=== PATIENT | female | born 1970 | race Caucasian/White ===

== ENCOUNTER 2019-12-19 09:36 | Outpatient (RCR) | payer BC, SELFPAY | END 2019-12-27 23:59 | disposition home or self-care (01) | LOC: SPT 09:36 | PROVIDERS: Family Provider Internal Medicine; PCP Internal Medicine; Visit Provider Internal Medicine | DX: M25.561 Pain in right knee (principal); I26.99 Other pulmonary embolism without acute cor pulmonale | CPT/HCPCS: 97110; 97113; 97162 ==

== ENCOUNTER 2019-12-28 06:00 | Outpatient (RCR) | payer BC, SELFPAY | END 2020-01-25 23:59 | disposition home or self-care (01) | LOC: SPT 06:00 | PROVIDERS: Family Provider Internal Medicine; PCP Internal Medicine; Visit Provider Internal Medicine | DX: M25.561 Pain in right knee (principal); I26.99 Other pulmonary embolism without acute cor pulmonale | CPT/HCPCS: 97113 ==

== ENCOUNTER 2020-01-26 06:00 | Outpatient (RCR) | payer BC, SELFPAY | END 2020-02-25 23:59 | disposition home or self-care (01) | LOC: SPT 06:00 | PROVIDERS: Family Provider Internal Medicine; PCP Internal Medicine; Visit Provider Internal Medicine | DX: I26.99 Other pulmonary embolism without acute cor pulmonale (principal); M25.561 Pain in right knee | CPT/HCPCS: 97164 ==

== ENCOUNTER → 2020-03-17 15:40 | Outpatient (BNVA) | payer BC, SELFPAY | PROVIDERS: Family Provider Internal Medicine; PCP Internal Medicine; Visit Provider Specialist | DX: G43.019 Migraine without aura, intractable, without status migrainosus (principal); G25.0 Essential tremor | CPT/HCPCS: 99213 ==

== ENCOUNTER 2020-10-15 08:31 | Outpatient (CLI) | payer BC, SELFPAY ==
--- NOTE | 2020-10-15 08:41 | MM_ITS ---
WS: [id number] Exam: [id number] Date/Time of Exam: 10/15/2020 8:50 AM Reason For Exam: SCREENING VIEWS: MLO and CC views both breasts. Comparison made with prior exam of 10/15/2019 and 10/01/2015. Findings: Stable appearing nodular densities in both breasts. No new suspicious finding in either breast. The breasts are heterogeneously dense. MM/[id number] Impression: BI-RADS: 2-Benign FOLLOW-UP: 1 Year Follow-up This mammogram was also analyzed by the Computer Aided Detection System R2 Imag e Mechanical Supervisor.
== END 2020-10-15 08:32 | disposition home or self-care (01) ==
LOC: RADSHAW 08:34
PROVIDERS: Family Provider Internal Medicine; PCP Internal Medicine; Visit Provider Internal Medicine
DX: Z12.31 Encounter for screening mammogram for malignant neoplasm of breast (principal)
CPT/HCPCS: 77067

== ENCOUNTER → 2020-12-16 14:44 | Outpatient (BNVA) | payer BC, SELFPAY | PROVIDERS: Family Provider Internal Medicine; PCP Internal Medicine; Visit Provider Specialist | DX: G43.711 Chronic migraine without aura, intractable, with status migrainosus (principal); G25.0 Essential tremor; G47.33 Obstructive sleep apnea (adult) (pediatric); F41.9 Anxiety disorder, unspecified; Z87.891 Personal history of nicotine dependence | CPT/HCPCS: 99214 ==

== ENCOUNTER 2020-12-24 20:00 | Outpatient (CLI) | payer BC, SELFPAY | END 2020-12-24 20:01 | disposition home or self-care (01) | LOC: SLEEP 12-25 08:59 | PROVIDERS: Family Provider Internal Medicine; PCP Internal Medicine; Visit Provider Specialist | DX: G47.30 Sleep apnea, unspecified (principal) | CPT/HCPCS: 95811 ==

== ENCOUNTER 2021-02-16 15:27 | Emergency (ER) | payer BC, SELFPAY ==
[2021-02-16 15:30] VITALS: BP 137/83; PULSE 97; RESP 18; TEMP 36.8; O2SAT 94; BMI 47.0
[2021-02-16 15:54] VITALS: BP 149/104; PULSE 88; RESP 14; O2SAT 94
[2021-02-16] MEDS: LORazepam 2 mg/mL INJ 1 mL 1 MG IM (16:04)
--- NOTE | 2021-02-16 16:31 | ED_ITS ---
HPI - Psych General: Chief Complaint: Psychiatric Symptoms Stated Complaint: PSYCH EVAL Time Seen by Provider: 02/16/21 15:43 History of Present Illness: HPI Narrative: The patient is a 50-year-old female with past medical history anxiety disorder who comes to the ER complaining of anxiety and crying that cannot stop. In the past 2 weeks she has been tapered down on her Klonopin which are 1 mg tablets from 4 times a day to 2 times a day. She says just after that she started having increased feelings of anxiety and crying that will not stop. Denies suicidal, homicidal ideations and denies hallucinations. Denies alcohol and drug abuse Duration: constant History of same: Yes Relieving factors: medication Associated psychiatric symptoms: none and other (Anxiety) Associated symptoms: Reports no associated symptoms; Deny depression Review of Systems General: Reports: 10 or more systems reviewed and unremarkable except in HPI and below Const: Denies: fatigue Eyes: Denies: change in vision, blurry vision or eye redness ENMT: Denies: throat pain, swelling of lips/tongue, ear or mastoid pain or nasal congestion Card: Denies: chest pain, palpitations, irregular heart rhythm, edema, dyspnea on exertion or orthopnea Resp: Denies: dyspnea, productive cough or non-productive cough GI: Denies: abdominal pain, diarrhea or GI cramping : Denies: flank pain, difficulty voiding, urinary frequency or urinary urgency Musc: Denies: neck pain, back pain, extremity pain, joint pain, joint redness, limited range of motion or muscle weakness Skin/Breast: Denies: rash, pruritus, erythema, skin pain or skin tenderness Neuro: Denies: headache(s), numbness in extremities, weakness in extremities, sensory changes, difficulty walking, dizziness, confusion or Slurred speech present Psych: Denies: anxiety or depression Endo: Denies: polyuria All/Imm: Denies: urticaria, throat swelling or tongue swelling PFSH ED PFSH: Medical History Chronic migraine without aura, intractable, with status migrainosus Depression with anxiety Essential tremor Gastroesophageal reflux History of pulmonary embolism (~07/2019) Reports no source of clot found. Obesity Palpitations Surgical History H/O total vaginal hysterectomy (06/15/10) with Solyx SIS sling. Dx: Menorrhagia, Uterovaginal prolapse, MISBAH. Performed by Dr. Newberry at [facility] [place] in [place], [place]. History of carpal tunnel surgery of right wrist x2 with Dr. Luna History of dilation and curettage (~1996) miscarriage at 7 months History of knee surgery S/P laparoscopic cholecystectomy (11/23/18) Performed by Dr. Chaudhari at [facility] [place] [place] in [place], [place] Family History Mother Diabetes Thyroid condition Hypertension Sister Thyroid condition Other Paternal family history unobtainable Social History Smoking and tobacco status: former smoker Quit status (tobacco): has quit using tobacco Year quit tobacco: 2013 Former quit date comment: smoked 32 years Alcohol intake: never History of recent travel: No Physical Exam Const: COMMON NORMALS: no acute distress, average body habitus, patient oriented x3, no limitations, healthy appearing, alert and well nourished GENERAL APPEARANCE: cooperative, comfortable, well kempt and well developed ORIENTATION/CONSCIOUSNESS: Yes awake, Yes oriented to person, Yes oriented to place and Yes oriented to time HENMT: COMMON NORMALS: normocephalic, external ears normal and Normal external nose present HEAD & SCALP: normal to inspection and normocephalic NOSE: Normal external nose present EXTERNAL EAR: Yes external ears normal MOUTH: Normal oral and palatal mucosa present THROAT: posterior oropharynx normal Eye: COMMON NORMALS: Equal, round and reactive pupils present and EOMs intact bilaterally GENERAL EYE: appearance normal, both eyes and all related structures PUPIL: Yes Equal, round and reactive pupils present Neck/C-Spine: COMMON NORMALS: full ROM, no lymphadenopathy, no meningeal signs and no JVD GENERAL: Yes normal visual inspection Lymph: LYMPHATIC: no lymphadenopathy noted Chest: COMMONS NORMALS: normal inspection of the chest and normal palpation of entire chest wall Resp: COMMON NORMALS: normal respiratory effort, No retractions, No use of accessory muscles, clear to auscultation bilaterally and percussion normal EFFORT & INSPECTION: Yes able to speak in complete sentences AUSCULTATION: clear to auscultation bilaterally PERCUSSION: percussion normal Cardio: COMMON NORMALS: no JVD, regular rate, regular rhythm, S1 normal heart sound present, S2 normal heart sound present and Peripheral pulses 2+ throughout RATE: regular rate RHYTHM: regular rhythm HEART SOUNDS: S1 normal heart sound present and S2 normal heart sound present PERIPHERAL PULSES: Peripheral pulses 2+ throughout GI: COMMON NORMALS: Normal to inspection, nondistended, normoactive bowel sounds present, Soft to palpation, non-tender and no masses INSPECTION: Yes normal to inspection PALPATION: Yes Soft to palpation : COMMON NORMALS: Yes no CVA tenderness BLADDER/KIDNEY EXAM: Yes no CVA tenderness Back/Pelvis: COMMON NORMALS: no CVA tenderness, thoracic and lumbar spine normal to inspection, no thoracic nor lumbar tenderness and thoraco-lumbar ROM normal Extremity: COMMON NORMALS: normal to inspection, full ROM, capillary refill normal, no joint enlargement and no pedal edema GENERAL: Yes normal exam except as noted Neuro: COMMON NORMALS: patient oriented x3, CN's II-XII intact bilaterally, moves all extremities, no focal motor deficits, no sensory deficits noted and gait normal SENSORIUM/ORIENTATION: Yes alert, Yes oriented to person, Yes oriented to place and Yes oriented to time MENINGEAL SIGNS: Yes no meningeal signs Psych: COMMON NORMALS: mental status grossly normal, Normal thought process present, cooperative and normal affect APPEARANCE: Yes well kempt MOOD & AFFECT: Yes tearful THOUGHT PROCESS: Normal thought process present Skin: COMMON NORMALS: no rashes or lesions noted GENERAL SKIN EXAM: no rashes or lesions noted MDM - Psych MDM Narrative: Medical decision making narrative: The patient is having severe anxiety attack from withdrawing from Klonopin as the dose has recently been reduced from 5 to 4 to 2 pills a day. Her symptoms improved after an Ativan injection. Recommended taking 3 pills a day for the next 2 days and calling her primary care physician and lowering it back to the 2 a day dosing after that. Follow-up with psych next month as she already has scheduled. ER with worsening symptoms Discharge Plan Discharge Patient Disposition: Home Clinical Impression: Anxiety Condition: Stable Prescriptions: No Action Eliquis 5 mg tablet 5 mg PO BID@05,22 RF: 0 bupropion HCl 300 mg tablet extended release 24 hr 300 mg PO BEDTIME@2200 RF: 0 omeprazole 20 mg capsule,delayed release(DR/EC) 20 mg PO DAILY@05 RF: 0 metoprolol succinate 25 mg tablet extended release 24 hr 25 mg PO DAILY@05 RF: 0 clonazepam 1 mg tablet 1 mg PO BID RF: 0 triamcinolone acetonide 0.5 % cream 1 applic TOPICAL BID 7 Days Qty: 15 RF: 0 sumatriptan 20 mg/actuation spray,non-aerosol 20 mg intranasal Q2H PRN (Reason: Migraine Headache) RF: 0 venlafaxine 150 mg capsule,extended release 24hr See Rx Instructions .ROUTE .COMPLEX Qty: 30 RF: 4 topiramate 100 mg Tablet 100 mg PO BEDTIME@2200 RF: 0 primidone 50 mg tablet 50 mg PO BID@05,22 RF: 0 Effexor XR 75 mg capsule,extended release 24hr 75 mg PO DAILY@05 RF: 0 Aimovig Autoinjector 140 mg/mL auto-injector 140 mg SUBCUT Q30D RF: 0 Discharge Orders: Discharge ED (Routine); Ordered 02/16/21 Ordered By: Placido Houser Referrals: Hammad Andrade, [Primary Care Provider] - Discharge Diet: Advance as tolerated Discharge Activity: Resume usual activity Patient Instructions: Anxiety (ED), Opioid Safety Activity Restrictions/Additional Instructions: Your symptoms seem to be worsening since you have gone down on your Klonopin dose which is typical of withdrawing from this medication. After given Ativan your symptoms have greatly improved. Please increase the Klonopin to 3 a day for the next 2 days and talk to your primary care physician who gives you the medication about what to do next. Return to the ER with worsening symptoms. Follow-up with your psychiatry appointment next month as you already have scheduled. Coding Level of Care Code ED Weather Reporter for Destinee Fwd Exam Comprehensive
[2021-02-16 17:30] VITALS: BP 123/82; PULSE 88; RESP 18; O2SAT 97
== END 2021-02-16 17:32 | disposition home or self-care (01) ==
PROVIDERS: Emergency Provider Family Medicine; PCP Internal Medicine
DX: F41.9 Anxiety disorder, unspecified (principal); Z87.891 Personal history of nicotine dependence
CPT/HCPCS: 96372; 99283; J2060

== ENCOUNTER → 2021-04-28 15:14 | Outpatient (BNVA) | payer BC, SELFPAY | PROVIDERS: PCP Internal Medicine; Visit Provider Specialist | DX: G25.0 Essential tremor (principal); G43.711 Chronic migraine without aura, intractable, with status migrainosus; G47.33 Obstructive sleep apnea (adult) (pediatric); F41.9 Anxiety disorder, unspecified | CPT/HCPCS: 99215 ==

== ENCOUNTER → 2021-06-24 13:15 | Outpatient (BNVA) | payer BC, SELFPAY | PROVIDERS: PCP Internal Medicine; Visit Provider Specialist | DX: G43.709 Chronic migraine without aura, not intractable, without status migrainosus (principal); Z87.891 Personal history of nicotine dependence | CPT/HCPCS: 64615; J0585 ==

== ENCOUNTER → 2021-07-05 16:34 | Outpatient (BNVA) | payer BC, SELFPAY | PROVIDERS: PCP Internal Medicine; Visit Provider Specialist | DX: G43.711 Chronic migraine without aura, intractable, with status migrainosus (principal) | CPT/HCPCS: 96372; J1885 ==

== ENCOUNTER → 2021-09-16 14:43 | Outpatient (BNVA) | payer BC, SELFPAY | PROVIDERS: PCP Internal Medicine; Visit Provider Specialist | DX: G43.711 Chronic migraine without aura, intractable, with status migrainosus (principal); Z87.891 Personal history of nicotine dependence | CPT/HCPCS: 64615; J0585 ==

== ENCOUNTER 2022-06-22 15:11 | Outpatient (CLI) | payer BC, SELFPAY ==
--- NOTE | 2022-06-22 15:17 | MM_ITS ---
WS: [id number] BILATERAL 3D TOMOSYNTHESIS DIGITAL SCREENING MAMMOGRAPHY WITH CAD CLINICAL INFORMATION: SCREENING HISTORY: Screening mammogram. No current complaints. COMPARISON: October 15, 2020 TECHNIQUE: Bilateral CC and MLO views. FINDINGS: The breasts are composed of heterogeneous fibroglandular density tissue, which can limit the detectio n of small underlying mass lesions. Previously described ovoid nodular densities RIGHT greater than L EFT are stable in appearance. Stable punctate calcifications upper outer LEFT breast. Stable faint pu nctate calcifications upper outer breast. No suspicious mass, asymmetry, calcifications, or data architect manager ural distortion. No evidence of malignancy. MM/[place] [id number] IMPRESSION: BI-RADS: 2-Benign FOLLOW UP: 1 Year Follow-up Recommend return to annual screening mammography.
== END 2022-06-22 15:12 | disposition home or self-care (01) ==
LOC: RAD 15:12
PROVIDERS: PCP Internal Medicine; Visit Provider Internal Medicine
DX: Z12.31 Encounter for screening mammogram for malignant neoplasm of breast (principal)
CPT/HCPCS: 77063; 77067

== ENCOUNTER → 2023-11-02 08:27 | Outpatient (BNVA) | payer MEDICARE, SELFPAY | PROVIDERS: PCP Internal Medicine; Visit Provider Specialist | DX: G43.711 Chronic migraine without aura, intractable, with status migrainosus (principal); G25.0 Essential tremor; F41.1 Generalized anxiety disorder | CPT/HCPCS: 99214 ==

== ENCOUNTER → 2024-05-07 09:45 | Outpatient (BNVA) | payer MEDICARE, SELFPAY | PROVIDERS: PCP Internal Medicine; Visit Provider Specialist | DX: G43.711 Chronic migraine without aura, intractable, with status migrainosus (principal); Z86.711 Personal history of pulmonary embolism; G25.0 Essential tremor; E13.9 Other specified diabetes mellitus without complications | CPT/HCPCS: 99213; 99214 ==

== ENCOUNTER → 2024-07-26 08:30 | Outpatient (BNVA) | payer MEDICARE, SELFPAY | PROVIDERS: PCP Internal Medicine; Visit Provider Internal Medicine | DX: E66.9 Obesity, unspecified; E11.9 Type 2 diabetes mellitus without complications; E78.2 Mixed hyperlipidemia; Z68.42 Body mass index [BMI] 45.0-49.9, adult; Z79.85 Long-term (current) use of injectable non-insulin antidiabetic drugs | CPT/HCPCS: 99204 ==

== ENCOUNTER → 2024-11-06 08:35 | Outpatient (BNVA) | payer MEDICARE, SELFPAY | PROVIDERS: PCP Internal Medicine; Visit Provider Specialist | DX: G43.711 Chronic migraine without aura, intractable, with status migrainosus (principal); Z86.711 Personal history of pulmonary embolism; G25.0 Essential tremor; E13.9 Other specified diabetes mellitus without complications | CPT/HCPCS: 99213; 99214 ==

== ENCOUNTER → 2024-11-26 08:36 | Outpatient (BNVA) | payer MEDICARE, SELFPAY | PROVIDERS: PCP Internal Medicine; Visit Provider Internal Medicine | DX: E66.9 Obesity, unspecified (principal); E11.9 Type 2 diabetes mellitus without complications; E78.2 Mixed hyperlipidemia; Z68.42 Body mass index [BMI] 45.0-49.9, adult; Z79.85 Long-term (current) use of injectable non-insulin antidiabetic drugs | CPT/HCPCS: 99214 ==

== ENCOUNTER 2025-02-07 09:31 | Outpatient (CLI) | payer MEDICARE, SELFPAY ==
--- NOTE | 2025-02-07 09:33 | MM_ITS ---
WS: [id number] BILATERAL SCREENING DIGITAL TOMOSYNTHESIS MAMMOGRAM WITH CAD HISTORY: SCREENING COMPARISON: Breast ultrasound 10/01/2015, mammogram 06/22/2022, 10/15/2020, 10/15/2019 Bilateral CC and MLO views with tomosynthesis and synthetic mammography submitted. Computer aided detection analyzed. Breast composition: The breasts are heterogeneously dense, which may obscure small masses. No suspicious masses, microcalcifications or architectural distortion. Long-term stability masses and asymmetries and calcifications within each breast. MM/MM scr tomosynthesis [id number] IMPRESSION: BI-RADS: 2 - Benign FOLLOW UP: 1 Year Follow-up
== END 2025-02-07 09:32 | disposition home or self-care (01) ==
LOC: RAD 09:31
PROVIDERS: PCP Family Medicine; Visit Provider Family Medicine
DX: Z12.31 Encounter for screening mammogram for malignant neoplasm of breast (principal); R92.333 Mammographic heterogeneous density, bilateral breasts; N63.20 Unspecified lump in the left breast, unspecified quadrant; N63.10 Unspecified lump in the right breast, unspecified quadrant; N64.89 Other specified disorders of breast; R92.1 Mammographic calcification found on diagnostic imaging of breast
CPT/HCPCS: 77063; 77067

== ENCOUNTER → 2025-02-19 11:24 | Outpatient (BNVA) | payer MEDICARE, SELFPAY | PROVIDERS: PCP Family Medicine; Visit Provider Internal Medicine | DX: E66.9 Obesity, unspecified (principal); E11.9 Type 2 diabetes mellitus without complications; E78.2 Mixed hyperlipidemia | CPT/HCPCS: 36415; 80053; 80061; 82044; 83036; 99214 ==

== ENCOUNTER → 2025-05-21 12:54 | Outpatient (BNVA) | payer MEDICARE, SELFPAY | PROVIDERS: PCP Family Medicine; Visit Provider Podiatrist Foot & Ankle Surgery | DX: B35.3 Tinea pedis (principal); L30.9 Dermatitis, unspecified | CPT/HCPCS: 99203 ==

== ENCOUNTER → 2025-06-11 13:48 | Outpatient (BNVA) | payer MEDICARE, SELFPAY | PROVIDERS: PCP Family Medicine; Visit Provider Podiatrist Foot & Ankle Surgery | DX: B35.3 Tinea pedis (principal); L30.9 Dermatitis, unspecified | CPT/HCPCS: 99213 ==

== ENCOUNTER → 2025-06-25 14:39 | Outpatient (BNVA) | payer MEDICARE, SELFPAY | PROVIDERS: PCP Family Medicine; Visit Provider Podiatrist Foot & Ankle Surgery | DX: B35.3 Tinea pedis (principal); L30.9 Dermatitis, unspecified | CPT/HCPCS: 99213 ==

== ENCOUNTER → 2025-07-16 15:07 | Outpatient (BNVA) | payer MEDICARE, SELFPAY | PROVIDERS: PCP Family Medicine; Visit Provider Podiatrist Foot & Ankle Surgery | DX: B35.3 Tinea pedis (principal); L30.9 Dermatitis, unspecified | CPT/HCPCS: 99213 ==

== ENCOUNTER → 2025-11-05 08:54 | Outpatient (BNVA) | payer MEDICARE, SELFPAY | PROVIDERS: PCP Family Medicine; Visit Provider Specialist | DX: G43.711 Chronic migraine without aura, intractable, with status migrainosus (principal); G25.0 Essential tremor; Z86.711 Personal history of pulmonary embolism; E13.9 Other specified diabetes mellitus without complications | CPT/HCPCS: 99213 ==